=== PATIENT | female | born 1980 | race Caucasian/White ===

== ENCOUNTER → 2017-07-01 | Outpatient (CLI) | payer OTHER ==
--- NOTE | 2017-07-01 12:41 | DI ---
LEFT FOOT, 07/01/2017 11:45 AM: Clinical History: Acute left foot pain. Previous Exam: None at this facility. 3 weightbearing views are submitted. There is no fracture or dislocation. There is some soft tissue s welling on the medial aspect of the first metatarsophalangeal joint. There may be slight widening of that joint space in which case that would represent a joint effusion. No soft tissue calcifications a re present and there is no erosive change of the bones to indicate a definitive finding of tophaceous gout. Reading: There is some soft tissue prominence with possible joint effusion involving the area of the first met atarsophalangeal joint. The exam is otherwise normal.
== END ==
LOC: MOB RAD 11:47
DX: M79.672 Pain in left foot (principal); W22.8XXA Striking against or struck by other objects, initial encounter
CPT/HCPCS: 73630